=== PATIENT | female | born 1995 | race Caucasian/White ===

== ENCOUNTER 2016-04-19 23:50 | Emergency (ER) | payer SELFPAY ==
[~2016-04-19] VITALS: Ht 170.2 cm; Wt 74.8 kg
[2016-04-19 23:59] VITALS: BP 128/63
--- NOTE | 2016-04-20 00:34 | PHYS DOC ---
Past Medical History Past Medical History: Asthma Past Surgical History: No Surgical History Alcohol Use: None Drug Use: None Adult General Chief Complaint Chief Complaint: UPPER EXTREMITY INJURY HPI HPI Patient is a 20 year old female who presents with 8 out of 10 left shoulder pain at the ACM joint that began 4 days ago while she was playing with her son. Review of Systems Review of Systems Constitutional: Denies fever or chills [] Musculoskeletal: Left shoulder pain Integument: Denies rash or skin lesions [] Neurologic: Denies headache, focal weakness or sensory changes [] Endocrine: Denies polyuria or polydipsia [] Allergies Allergies Allergies Coded Allergies Type Severity Reaction Last Updated Verified No Known Drug Allergies 04/03/13 No Physical Exam Physical Exam Constitutional: Well developed, well nourished, no acute distress, non-toxic appearance. [] Back: No tenderness, no CVA tenderness. [] Extremities: Left shoulder with no obvious deformity. Diffuse tenderness on palpation of the left shoulder SCM joint. Full range of motion to the left shoulder. Patient able to raise the left shoulder above 90. Patient able to abduct and abduct the left shoulder with no difficulties. Adequate medial radial and ulnar sensation to the left forearm. +2 left radial pulse.cap refill less than 2 seconds to the left upper extremity. Neurologic: Alert and oriented X 3, normal motor function, normal sensory function, no focal deficits noted. [] Psychologic: Affect normal, judgement normal, mood normal. [] Current Patient Data Vital Signs Vital Signs Date Time Temp Pulse Resp B/P Pulse Ox O2 Delivery O2 Flow Rate FiO2 04/19/16 23:59 98.3 84 20 100 Room Air 98.3 EKG EKG [] Radiology/Procedures Radiology/Procedures [] Course & Med Decision Making Course & Med Decision Making Pertinent Labs and Imaging studies reviewed. (See chart for details) Patient is in the ED with left shoulder pain that began after playing with her son. Left shoulder x-ray interpreted by Dr. South is negative for any acute findings. Symptoms are consistent with shoulder strain. Patient was provided a sling in the ED applied by the ED RN. Neurovascular exam done by me post sling application is normal. Ice elevation encouraged. Naproxen Flexeril for pain. Follow-up with open one week. Varsha Disclaimer Dragon Disclaimer This electronic medical record was generated, in whole or in part, using a voice recognition dictation system. Departure Departure Impression: Primary Impression: Left shoulder strain Disposition: 01 HOME, SELF-CARE Condition: STABLE Referrals: EDGAR GAGE DO (PCP) RANGEL SARMIENTO MD follow up with the doctor provided or your own doctor in 7 days Patient Instructions: Muscle Strain Additional Instructions: You were seen for left shoulder strain. Wear the sling as tolerated, ensure you remove the left upper extremity from the sling every hour, and take it through full range of motion as well as dangle it to prevent frozen shoulder. Ice and elevate the extremity. Take the provided pain medicines as needed. Follow-up with your own doctor or the provided orthopedic doctor in a week. Scripts Cyclobenzaprine Hcl 10 Mg Tablet1 Tab PO TID #30 TAB Prov:MASSIEL LIEBERMAN APRN 04/20/16 Naproxen 500 Mg Tablet.dr1 Tab PO BID #60 TAB Ref 1 Prov:MASSIEL LIEBERMAN APRN 04/20/16 Problem Qualifiers Primary Impression: Left shoulder strain Encounter type: initial encounter Qualified Code: S46.912A - Strain of unspecified muscle, fascia and tendon at shoulder and upper arm level, left arm , initial encounter MASSIEL LEIBERMAN APRN Apr 20, 2016 00:34
[2016-04-20] MEDS ORDERED: CYCL10TA2 PO (00:40)
[2016-04-20] MEDS ORDERED: NAPR500T8 PO (00:40)
--- NOTE | 2016-04-20 07:54 | RAD ---
Left shoulder, 3 views, 04/19/2016: History: Shoulder pain, injury No fracture or dislocation is identified. The soft tissues are unremarkable. IMPRESSION: No significant abnormality is detected.
== END 2016-04-20 00:55 | disposition home or self-care (01) ==
LOC: ER 23:50
DX: S46.912A Strain of unspecified muscle, fascia and tendon at shoulder and upper arm level, left arm, initial encounter (principal); J45.909 Unspecified asthma, uncomplicated; X58.XXXA Exposure to other specified factors, initial encounter; Y93.89 Activity, other specified; Y92.89 Other specified places as the place of occurrence of the external cause; Y99.8 Other external cause status
CPT/HCPCS: 73030; 99284

== ENCOUNTER → 2019-01-04 | Day surgery (SDC) | payer MEDICAID, OTHER ==
[~2019-01-04] MED LIST: CYCL10TA2 PO; GLYCOPYRROLATE 1 MG/5 ML SYRINGE. IV ONE; GLYCOPYRROLATE 1 MG/5 ML VIAL. ONE; IV RINGERS,LACTATED 1000ML 1,000 ML IV ONE; LIDOCAINE 2% PF 5 ML VIAL. ONE; NAPR500T8 PO; OMEP20TA8 PO; PROPOFOL 20 ML IV ONE
[2019-01-04 09:15] VITALS: BP 150/97
== END | disposition home or self-care (01) ==
LOC: ENDOS 07:30
PROVIDERS: ATTEND Internal Medicine Gastroenterology
DX: K29.50 Unspecified chronic gastritis without bleeding (principal); K21.9 Gastro-esophageal reflux disease without esophagitis; F41.9 Anxiety disorder, unspecified; F32.9 Major depressive disorder, single episode, unspecified; J45.909 Unspecified asthma, uncomplicated; F15.90 Other stimulant use, unspecified, uncomplicated; Z87.891 Personal history of nicotine dependence; Z88.5 Allergy status to narcotic agent; Z72.89 Other problems related to lifestyle
CPT/HCPCS: 43235; 81025; J2001; J2704; J3490

== ENCOUNTER → 2019-01-23 | Outpatient (CLI) | payer OTHER ==
[2019-01-04 09:15] VITALS: BP 150/97
[~2019-01-23] VITALS: Ht 170.2 cm; Wt 85.3 kg
[~2019-01-23] MED LIST changes: -GLYCOPYRROLATE 1 MG/5 ML SYRINGE. IV ONE; -GLYCOPYRROLATE 1 MG/5 ML VIAL. ONE; -IV RINGERS,LACTATED 1000ML 1,000 ML IV ONE; -LIDOCAINE 2% PF 5 ML VIAL. ONE; +MORPHINE SULFATE 4 MG/ML VIAL. IV ONE; +MORPHINE SULFATE 4 MG/ML VIAL. ONE; -PROPOFOL 20 ML IV ONE
--- NOTE | 2019-01-23 08:43 | RAD ---
EXAM: Abdomen sonogram. HISTORY: Pain. TECHNIQUE: Sonographic imaging of the abdomen was performed. COMPARISON: None. FINDINGS: The right hepatic lobe is mildly enlarged. No focal hepatic lesion is seen. The gallbladder is unremarkable. The common bile duct is normal in caliber. The pancreas, right kidney, aorta and inferior vena cava are unremarkable. IMPRESSION: 1. Mildly enlarged right hepatic lobe, possibly physiologic. No hepatic lesion is seen. 2. Otherwise, unremarkable sonogram. Electronically signed by: Flory Smith MD (01/23/2019 8:40 AM) [facility]
--- NOTE | 2019-01-23 11:47 | RAD ---
EXAM: HEPATOBILIARY SCINTIGRAPHY. HISTORY: Epigastric and abdominal pain. Bloating and nausea. TECHNIQUE: 5.4 mCi technetium-99m Choletec were administered intravenously and scintigraphic images of the abdomen obtained. FINDINGS: There is prompt hepatic clearance of tracer from the blood pool. There is homogeneous distribution throughout the liver. The gallbladder did not fill within 70 minutes. At 4 mg morphine were administered intravenously and the gallbladder did fill. There is normal excretion of activity into the biliary tree and small bowel. The gallbladder ejection fraction was not calculated IMPRESSION: 1. The gallbladder filled after morphine administration, arguing against acute cholecystitis. Electronically signed by: Kwaku Clifton MD (01/23/2019 11:44 AM) [facility]
== END | disposition home or self-care (01) ==
LOC: US 09:14
PROVIDERS: ATTEND Internal Medicine Gastroenterology
DX: R16.0 Hepatomegaly, not elsewhere classified (principal); R14.0 Abdominal distension (gaseous); R11.0 Nausea
CPT/HCPCS: 76705; 78227; A9537; J2270

== ENCOUNTER → 2020-06-02 | Outpatient (CLI) | payer MEDICAID, OTHER ==
[2019-01-04 09:15] VITALS: BP 150/97
[~2020-06-02] MED LIST changes: +0.9 % SODIUM CHLORIDE 10 ML DISP.SYRIN. ID ONE; +GADOTERATE 5 MMOL/10ML VIAL. INT ART ONE; +IOHEXOL 300 MG/ML 50 ML VIAL. INT ART ONE; +LIDOCAINE 1% Multi-Dose 20 ML VIAL. ID ONE; -MORPHINE SULFATE 4 MG/ML VIAL. IV ONE; -MORPHINE SULFATE 4 MG/ML VIAL. ONE
--- NOTE | 2020-06-02 14:26 | KCIC ---
FLUOROSCOPICALLY GUIDED RIGHT SHOULDER ARTHROGRAM 1. INDICATION: The patient is a 24 years old Female who presented with posttraumatic right shoulder pain. 2. CONSENT: The risks, benefits, treatment options, potential complications and personnel to be invo lved were discussed (including the risks of radiation exposure, instruments to be used, contrast and anesthesia administration) with the patient. All questions were answered and consent was obtained. Th e patient indicated willingness to proceed. 3. GENERAL: a) Medication Reconciliation: The patient's medications and allergies were reviewed in the [facility] medical record and reconciled to the proposed procedure/treatment. b) Positioning: The patient was placed Supine on the fluoroscopy table. c) The shoulder was then sterilely prepped and draped. d) Time Out: A time out was performed immediately prior to procedure start with the nursing, anesthes ia and interventional team, correctly identifying the patient name, date of , procedure, anatomy (including marking of site and side), patient position, procedure consent form, relevant diagnostic and radiology test results, antibiotic administration, safety precautions, and procedure-specific equ ipment needs. Procedure Start Time / Timeout Time: 13:31 e) Anesthesia Type: Local anesthesia: 2 mL 1% Lidocaine 4. PROCEDURE: a) Procedure Details: A 20g spinal needle was inserted into the shoulder joint. 1 mL Omnipaque 300 w as injected to confirm intra-articular placement of needle. Contrast was observed to flow into the in tra-articular space of the joint without significant resistance. 12 mL of injectate was administered into the joint. The needle was removed. Images were stored to the permanent digital archive documenti ng needle position. b) Injectate Contents: 0.2 mL Clariscan 20 mL Normal Saline c) Estimated Blood Loss: 0 mL RADIATION DOSE: Fluoroscopic Radiation Summary: Fluoro time: 0:12 min:sec POST PROCEDURE: a) Hemostasis: Hemostasis was achieved using light manual compression. b) Procedure End Time: 13:40 c) Conclusion: The patient was discharged from the radiology department in stable condition. COMPLICATIONS: a) Significant Patient Complication: None If other, explain: b) Complications during the procedure: None If other, explain: 5. RESULTS: Contrast was injected into the joint. 6. IMPRESSION: SUCCESSFUL FLUOROSCOPICALLY GUIDED ARTHROGRAM OF THE RIGHT SHOULDER DESCRIBED ABOVE. Electronically signed by: Vikash Posadas DO (06/02/2020 2:24 PM) [id number]
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
== END | disposition home or self-care (01) ==
LOC: KCIC 12:48
PROVIDERS: ATTEND Physician Assistant
DX: M25.511 Pain in right shoulder (principal); M75.41 Impingement syndrome of right shoulder; S43.431D Superior glenoid labrum lesion of right shoulder, subsequent encounter; J45.909 Unspecified asthma, uncomplicated; F41.9 Anxiety disorder, unspecified; F32.9 Major depressive disorder, single episode, unspecified; Z87.891 Personal history of nicotine dependence; Z72.89 Other problems related to lifestyle; Z79.899 Other long term (current) drug therapy; Z98.890 Other specified postprocedural states; X58.XXXD Exposure to other specified factors, subsequent encounter
CPT/HCPCS: 23350; 73219; 77002; A9575; J3490; Q9967; 73040